=== PATIENT | male | born 1995 | race Caucasian/White ===

== ENCOUNTER 2019-07-29 09:22 | Emergency (ER) | payer SELFPAY ==
[~2019-07-29] VITALS: Ht 167.6 cm; Wt 66.0 kg
[2019-07-29] MEDS ORDERED: ONDANSETRON 2MG/ML, 2ML IVPush ONE (10:00)
[2019-07-29] MEDS ORDERED: SODIUM CHLORIDE FLUSH 10ML SYR IVF ONE (10:00)
[2019-07-29] MEDS ORDERED: SODIUM CHLORIDE 0.9% 1,000ML IVBOLUS ONE (10:00)
--- NOTE | 2019-07-29 10:00 | NUR ---
PT PRESENTS TO ED WITH C/O GRADUAL ONSET SORE THROAT, BILATERAL LOWER BACK PAIN, BILATERAL LEG PAIN, N/V STARTING 2 DAYS AGO. PT DENIES INJURY. PT HAS HX DM, CANNOT STATE IF IT IS TYPE 1 OR 2. PT HAS BEEN NON-COMPLIANT WITH FINGERSTICKS AND PRSCRIBED MEDICATION. PT STATES HE WAS PRESCRIBED METFORMIN IN PAST BUT HASNT TAKEN METFORMIN OR TAKEN ON BLOOD SUGAR IN 1 YEAR. PT A&O, RESPS EVEN AND UNLABORED, NSR ON THREAD SPOOLER WITH NO ECTOPY. PT ATTACHED TO ALL MONITORS. CALL LIGHT IN REACH.
[2019-07-29 10:12] LABS: PH, VENOUS 7.419 pH (7.320-7.420)
[2019-07-29 10:13] LABS: FIO2 NOT DOCUMENTED %
[2019-07-29 10:15] LABS: BASOPHILS % (AUTO) 0 % (0-1); EOSINOPHILS % (AUTO) 0 % (1-7); LYMPHOCYTES # (AUTO) 0.44 x10^3/uL (1-3.4); LYMPHOCYTES % (AUTO) 7 % (22-44); MD NO; MEAN CORPUSCULAR HEMOGLOBIN 29.6 pg (27.5-34.5); MEAN CORPUSCULAR HGB CONC 34.5 g/dL (33.2-36.2); MEAN PLATELET VOLUME 8.7 fL (7.4-10.4); MONOCYTES # (AUTO) 0.56 x10^3/uL (0.2-0.8); MONOCYTES % (AUTO) 9 % (2-9); NEUTROPHILS # (AUTO) 5.18 x10^3/uL (1.8-6.8); NEUTROPHILS % (AUTO) 84 % (42-75); PLATELET COUNT 182 x10^3/uL (130-400); RED BLOOD COUNT 5.93 x10^6/uL (4.38-5.82); RED CELL DISTRIBUTION WIDTH 12.6 % (9.4-14.8)
[2019-07-29 10:23] LABS: RAPID INFLUENZA A Negative (Negative); RAPID INFLUENZA B POSITIVE (Negative)
[2019-07-29 10:25] LABS: ALANINE AMINOTRANSFERASE 27 U/L (12-78); ALBUMIN 3.9 g/dL (3.4-5.0); ANION GAP 5 mmol/L (5-15); CALCIUM 8.5 mg/dL (8.5-10.1); CHLORIDE 93 mmol/L (98-107)
[2019-07-29 10:28] LABS: ALKALINE PHOSPHATASE 90 U/L (45-117); BILIRUBIN,TOTAL 1.2 mg/dL (0.2-1.0); CREATININE 0.94 mg/dL (0.7-1.3); TOTAL PROTEIN 7.3 g/dL (6.4-8.2)
[2019-07-29 10:44] LABS: ACETONE, SERUM Trace (10mg/dL) mg/dL (Negative)
[2019-07-29] MEDS ORDERED: ONDANSETRON 2MG/ML, 2ML ONE (10:45)
[2019-07-29 10:53] VITALS: BP 135/89
--- NOTE | 2019-07-29 10:59 | NUR ---
REPEAT FINGERSTICK GLUCOSE IS 338 S/P 1 L NS, MAYELIN CHRISTIANSON NOTIFIED. DROPLET PRECAUTIONS ARE IN PLACE D/T POSITIVE FLU LAB RESULT. AWAITING UA RESULTS AND DISPO.
[2019-07-29 11:11] LABS: CULTURE INDICATED? YES; MICROSCOPIC INDICATED
[2019-07-29] MEDS ORDERED: ONDANSETRON ODT 4 MG ONE (11:15)
--- NOTE | 2019-07-29 11:28 | NUR ---
TASK RN: REQUEST SENT TO PHARM AT THIS TIME.
[2019-07-29] MEDS ORDERED: metFORMIN 500 MG TABLET PO ONE (11:30)
[2019-07-29] MEDS ORDERED: ONDANSETRON ODT 4 MG PO ONE (11:30)
--- NOTE | 2019-07-29 12:21 | NUR ---
VIDEO PRODUCTION ENGINEER: Patient/Caregiver given discharge instructions and they have confirmed that they understand the instructions. Patient ambulatory with steady gait.
== END 2019-07-29 12:19 | disposition home or self-care (01) ==
LOC: ED 12:11
DX: K52.9 Noninfective gastroenteritis and colitis, unspecified (principal); J10.1 Influenza due to other identified influenza virus with other respiratory manifestations; E11.65 Type 2 diabetes mellitus with hyperglycemia; E11.40 Type 2 diabetes mellitus with diabetic neuropathy, unspecified
CPT/HCPCS: 36415; 71046; 80053; 81001; 82010; 82803; 82962; 85025; 87081; 87086; 87400; 87880; 96360; 96361; 99284; J7030; Q0162

== ENCOUNTER 2019-12-08 10:30 | Emergency (ER) | payer SELFPAY ==
[~2019-12-08] VITALS: Ht 167.6 cm; Wt 57.6 kg
--- NOTE | 2019-12-08 13:00 | NUR ---
Dorys mcneil in [facility] - 12/08/19 at 1314 by JOSE FRANCISCO PROPOFOL GTT DECREASED TO @5MCG/KG/H
--- NOTE | 2019-12-08 13:04 | NUR ---
pt to room at this time.
--- NOTE | 2019-12-08 13:10 | NUR ---
Dorys mcneil in ED - 12/08/19 at 1314 by JOSE FRANCISCO VENT SETTINGS: ACVC 14,450,FIO2 50%, PEEP 8, T1 0.9. I:E 1:3
[2019-12-08 13:21] VITALS: BP 133/85
--- NOTE | 2019-12-08 13:23 | NUR ---
FIRST CONTACT WITH PT. PT C/O LEFT RIB PAIN & NAUSEA AFTER FELL LAST NIGHT ONTO BATHTUB. PT DENIES ANY OTHER SYMPTOMS. PT'S AOX4. RESPS EVEN AND UNLABORED. BP/SPO2 MONITORS IN PLACE. CALL LIGHT WITHIN REACH.
--- NOTE | 2019-12-08 13:55 | NUR ---
Patient given discharge instructions and they have confirmed that they understand the instructions. Patient ambulatory with steady gait.
== END 2019-12-08 13:56 | disposition home or self-care (01) ==
LOC: ED 12:02
DX: S20.221A Contusion of right back wall of thorax, initial encounter (principal); E11.65 Type 2 diabetes mellitus with hyperglycemia; E11.40 Type 2 diabetes mellitus with diabetic neuropathy, unspecified; W01.0XXA Fall on same level from slipping, tripping and stumbling without subsequent striking against object, initial encounter; Y93.89 Activity, other specified; Y92.009 Unspecified place in unspecified non-institutional (private) residence as the place of occurrence of the external cause; Y99.8 Other external cause status
CPT/HCPCS: 99283